=== PATIENT | female | born 1955 | race Caucasian/White ===

== ENCOUNTER 2022-06-09 00:37 | Emergency (ER) | payer OTHER ==
[~2022-06-09] VITALS: Ht 167.6 cm; Wt 64.0 kg
[2022-06-09 00:44] VITALS: BP_SYST 142
--- NOTE | 2022-06-09 01:10 | NUR ---
Patient came to the ER with complians of rt knee pain s/p trip and fall yesterday. Patient denies hitting her head, states she landed on her rt knee. Denies any other remarkable symptoms, breathing easy, respirations even unlabored. Patient ambulates with cane.
--- NOTE | 2022-06-09 01:10 | NUR ---
Patient ambulatory to [facility] for evaluation
--- NOTE | 2022-06-09 01:15 | NUR ---
ER examining patient.
[2022-06-09] MEDS ORDERED: HYDROcodone/ACETAMIN 5-325 MG TAB (NORCO/ VICODIN) PO ONE (01:30)
--- NOTE | 2022-06-09 01:50 | NUR ---
To X-ray via wheelchair accompanied by tech.
[2022-06-09] MEDS ORDERED: DICL100G33 TP (02:53)
[2022-06-09 03:09] VITALS: BP_SYST 128
--- NOTE | 2022-06-09 03:09 | NUR ---
Patient given written and verbal discharge instructions and verbalizes understanding. ER MD discussed with patient the results and treatment provided. Patient in stable condition. Rx of Diclofenac Sodium gel sent to pharmacy of choice by ER MD. Patient educated on pain management and to follow up with PMD. Pain Scale 7/10. Opportunity for questions provided and answered.
== END 2022-06-09 03:09 | disposition home or self-care (01) ==
LOC: SED 00:37
DX: S80.911A Unspecified superficial injury of right knee, initial encounter (principal); Z79.899 Other long term (current) drug therapy; W01.0XXA Fall on same level from slipping, tripping and stumbling without subsequent striking against object, initial encounter; Y93.89 Activity, other specified; Y92.89 Other specified places as the place of occurrence of the external cause; Y99.8 Other external cause status
CPT/HCPCS: 73564; 99283